=== PATIENT | male | born 1970 ===

== ENCOUNTER → 2022-02-04 | Outpatient (CLI) | payer MEDICARE, OTHER ==
[~2022-02-04] MED LIST: AMLO5TAB66 PO; ASPI81TA87 PO; ATEN-187 PO; ATOR-2 PO; CALC0.5C PO; CARV12 PO; DOCU-133 PO; DULA1.5P SQ; FAMO20 PO; FOLI1TAB85 PO; GABA-1216 PO; GENT30CR TP; HYDR-4072 PO; INSU100V SQ; INSU100V12 SQ; LANT500T7 PO; LIDO15CR11 TP; NIFE-46 PO; ONDA-104 PO; SEVE800T7 PO
[2022-02-04 10:16] VITALS: BP 94/51
== END | disposition home or self-care (01) ==
LOC: SRCNTR 10:00
PROVIDERS: ATTEND Internal Medicine Pulmonary Disease
DX: I12.0 Hypertensive chronic kidney disease with stage 5 chronic kidney disease or end stage renal disease (principal); E11.22 Type 2 diabetes mellitus with diabetic chronic kidney disease; N18.6 End stage renal disease; M86.8X9 Other osteomyelitis, unspecified sites; Z99.2 Dependence on renal dialysis
CPT/HCPCS: G0463